=== PATIENT | female | born 1980 | race Caucasian/White ===

== ENCOUNTER 2017-10-03 09:01 | Inpatient (IN) | payer OTHER ==
[~2017-10-03] VITALS: Ht 172.7 cm; Wt 63.5 kg
[2017-10-03 09:06] VITALS: BP 144/82
[2017-10-03] MEDS ORDERED: SYNTHROID112 MC1 PO (09:11)
[2017-10-03 10:02] LABS: HEMATOCRIT 39.1 % (37.0-47.0); HEMOGLOBIN 12.8 gm/dL (12.0-15.0); MCH 29.8 pg (26.0-34.0); MCHC 32.7 g/dL (28.0-37.0); MCV 91.1 fL (80.0-100.0); MPV 10.1 fl. (7.2-11.1); NUCLEATED RBCS 0 /100WBC; PLATELET COUNT* 264 thou/uL (150-400); RBC 4.29 mil/uL (4.20-5.00); RDW-CV 12.9 % (10.5-14.5); WBC 15.3 thou/uL (4.0-11.0)
[2017-10-03 10:07] LABS: URINE BLOOD TRACE (Negative); URINE CLARITY CLEAR; URINE COLOR YELLOW; URINE GLUCOSE-RANDOM TRACE (Negative); URINE LEUKOCYTES-REFLEX NEGATIVE (Negative); URINE NITRITE-REFLEX NEGATIVE (Negative); URINE PROTEIN 1+ (Negative); URINE UROBILINOGEN >= 8.0 E.U./dl (0.2-1.0)
[2017-10-03 10:09] LABS: CALCIUM 9.2 mg/dL (8.5-10.1); CREATININE 0.7 mg/dL (0.6-1.3); POTASSIUM 3.3 mmol/L (3.5-5.1)
[2017-10-03 10:12] LABS: URINE BILIRUBIN 2+ (Negative); URINE KETONES 3+ (Negative)
[2017-10-03 10:13] LABS: ALBUMIN 3.5 g/dL (3.4-5.0); TOTAL BILIRUBIN 0.9 mg/dL (<0.1-1.0); TOTAL PROTEIN 8.2 g/dL (6.4-8.2)
[2017-10-03 10:13] LABS: ICTOTEST (BILI CONFIRMATORY) Negative (Negative)
[2017-10-03 10:15] LABS: BACTERIA-REFLEX None Seen /HPF (None Seen); CASTS None Seen /LPF (None Seen); CRYSTALS None Seen /LPF (None Seen); MUCUS 4-6 Moderate strn/LPF (None Seen); SQUAMOUS >10 Many /LPF (0-3); URINE RBC 0-2 Rare /HPF (0-2); URINE WBC-REFLEX 0-5 Rare /HPF (0-5)
[2017-10-03 10:29] LABS: ABSOLUTE EOSINOPHILS 0.2 thou/uL (0.0-0.7); ABSOLUTE LYMPHOCYTES 1.1 thou/uL (0.8-5.3); ABSOLUTE MONOCYTES 0.5 thou/uL (0.0-1.2); ABSOLUTE NEUTROPHILS 13.6 thou/uL (1.6-8.1); PLATELET ESTIMATE ADEQUATE
[2017-10-03 11:52] VITALS: BP 144/82
[2017-10-03 14:49] VITALS: BP 114/70
[2017-10-03 16:42] VITALS: BP 119/68
[2017-10-04] VITALS: BP 114/74
[2017-10-04 04:01] LABS: ABSOLUTE LYMPHOCYTES 0.7 thou/uL (0.8-5.3); ABSOLUTE NEUTROPHILS 10.6 thou/uL (1.6-8.1); BASOPHILS 0.3 %; EOSINOPHILS 0.1 %; HEMATOCRIT 31.3 % (37.0-47.0); LYMPHOCYTES 5.7 %; MCH 30.4 pg (26.0-34.0); MCHC 33.3 g/dL (28.0-37.0); MCV 91.4 fL (80.0-100.0); MONOCYTES 7.9 %; MPV 10.1 fl. (7.2-11.1); NUCLEATED RBCS 0 /100WBC; PLATELET COUNT* 217 thou/uL (150-400); RBC 3.43 mil/uL (4.20-5.00); WBC 12.4 thou/uL (4.0-11.0)
[2017-10-04 04:07] LABS: HEMOGLOBIN 10.4 gm/dL (12.0-15.0)
[2017-10-04 04:30] LABS: ALBUMIN 2.6 g/dL (3.4-5.0); CALCIUM 7.7 mg/dL (8.5-10.1); CREATININE 0.6 mg/dL (0.6-1.3); POTASSIUM 4.1 mmol/L (3.5-5.1); TOTAL BILIRUBIN 0.6 mg/dL (<0.1-1.0); TOTAL PROTEIN 5.8 g/dL (6.4-8.2)
[2017-10-04 08:03] VITALS: BP 110/73
[2017-10-04 15:48] VITALS: BP 105/67
--- NOTE | 2017-10-04 19:07 | NUR ---
PT VSS THIS SHIFT. PT AMBULATING IN HALLS WITH FAMILY WITH NO COMPLICATIONS. PT TOLERATING NG TUBE AT 61 THIS SHIFT. PT PAIN WELL CONTROLLED WITH IV MEDICATIONS THIS SHIFT, PT CALLS OUT FOR PAIN RELIEF WITH NO PROBLEMS. FAMILY AT BEDSIDE THIS SHIFT.
[2017-10-04 20:00] VITALS: BP 118/69
[2017-10-04 23:55] VITALS: BP 109/70
[2017-10-05 04:03] VITALS: BP 104/69
[2017-10-05 04:35] LABS: ALBUMIN 2.5 g/dL (3.4-5.0); CALCIUM 8.1 mg/dL (8.5-10.1); CREATININE 0.6 mg/dL (0.6-1.3); MAGNESIUM 1.8 mg/dL (1.8-2.4); PHOSPHORUS* 2.4 mg/dL (2.5-4.9); POTASSIUM 3.7 mmol/L (3.5-5.1); TOTAL BILIRUBIN 0.3 mg/dL (<0.1-1.0); TOTAL PROTEIN 6.2 g/dL (6.4-8.2)
[2017-10-05 04:37] LABS: HEMATOCRIT 31.4 % (37.0-47.0); HEMOGLOBIN 10.6 gm/dL (12.0-15.0); MCH 30.9 pg (26.0-34.0); MCHC 33.7 g/dL (28.0-37.0); MCV 91.5 fL (80.0-100.0); MPV 10.1 fl. (7.2-11.1); RBC 3.43 mil/uL (4.20-5.00); RDW-CV 13.3 % (10.5-14.5); WBC 8.1 thou/uL (4.0-11.0)
--- NOTE | 2017-10-05 06:04 | NUR ---
PATIENT HAS REMAINED ALERT AND ORIENTED X 4 THROUGHOUT THE SHIFT AND RESTING QUIETLY ON HOURLY ROUNDS. UP WITH FAMILY HS AND MADE MULTIPLE AMBULATING ROUNDS OF UNIT. SCD'S ON WHILE IN BED. NGT TO LOW INTERMITTANT SUCTION. DECREASING OUTPUT. NO NAUSEA. DRESSINGS TO ABDOMEN CLEAN AND DRY. ISIDORO INTACT. MEDICATED FOR PAIN Q3H TO GOOD EFFECT. USING IS INDEPENDENTLY. VITAL SIGNS STABLE. REMAINS NPO. IVF'S AND ANTIBIOTICS PER ORDERS. SPOKE TO DR. YU AT 0752 REGARDING AM LOVENOX DOSE. NEW ORDERS RECEIVED. CONTINUE TO MONITOR.
[2017-10-05 07:45] VITALS: BP 109/71
--- NOTE | 2017-10-05 10:32 | NUR ---
NURSE CHECKED AND AGREES WITH NURSING STUDENTS CHARTING.
--- NOTE | 2017-10-05 14:00 | NUR ---
PT.ALERT AND ORIENTED. STATED SHE LIVES AT HOME WITH HER AND CHILDREN. SHE IS INDEPENDENT. WORKS OUTSIDE THE HOME. NO HX OF DME OR HOME HEALTH. SHE HAS BEEN AMBULATING IN HALLS. GOAL IS TO RETURN HOME WITH FAMILY.
[2017-10-05 15:30] VITALS: BP 110/77
--- NOTE | 2017-10-05 18:18 | NUR ---
ALERT AND ORIENTED X4. UP AD EDUARDO IN ROOM. IV IS PATENT AND INFUSING. PAIN BEING MANAGED WITH IV PAIN MEDICATION. DENIES NAUSEA. NG TUBE IN PLACE AND CLAMPED. TOLERATING CLEAR LIQUID DIET. AMBULATING IN HALLWAYS THROUGHOUT SHIFT. VSS ON ROOM AIR. HOURLY ROUNDS HAVE BEEN MAINTAINED THROUGHOUT SHIFT. CALL LIGHT IS WITHIN REACH. NURSING WILL CONTINUE TO MONITOR.
[2017-10-05 19:52] VITALS: BP 116/76
[2017-10-05 23:30] VITALS: BP 100/65
[2017-10-06 02:10] VITALS: BP 107/70
[2017-10-06 04:00] VITALS: BP 114/74
[2017-10-06 04:41] LABS: CALCIUM 7.9 mg/dL (8.5-10.1); CREATININE 0.5 mg/dL (0.6-1.3); MAGNESIUM 2.1 mg/dL (1.8-2.4); PHOSPHORUS* 3.2 mg/dL (2.5-4.9); POTASSIUM 3.9 mmol/L (3.5-5.1)
[2017-10-06 04:42] LABS: ABSOLUTE EOSINOPHILS 0.1 thou/uL (0.0-0.7); ABSOLUTE MONOCYTES 0.7 thou/uL (0.0-1.2); ABSOLUTE NEUTROPHILS 4.5 thou/uL (1.6-8.1); BASOPHILS 0.4 %; HEMATOCRIT 29.1 % (37.0-47.0); HEMOGLOBIN 9.7 gm/dL (12.0-15.0); MCH 30.5 pg (26.0-34.0); MCHC 33.4 g/dL (28.0-37.0); MCV 91.5 fL (80.0-100.0); MONOCYTES 11.3 %; MPV 9.5 fl. (7.2-11.1); NUCLEATED RBCS 0 /100WBC; PLATELET COUNT* 236 thou/uL (150-400); POLYS 70.3 %; RBC 3.18 mil/uL (4.20-5.00); RDW-CV 13.2 % (10.5-14.5); WBC 6.4 thou/uL (4.0-11.0)
--- NOTE | 2017-10-06 05:38 | NUR ---
PATIENT HAS REMAINED ALERT AND ORIENTED X 4 THROUGHOUT THE SHIFT AND RESTING QUIETLY. UP IN ROOM WITH CGA WITH . HAS BEEN AMBULATING IN THE HALLS. NGT OUT AT SHIFT CHANGE. SIPPING CLEAR LIQUIDS. HAS DENIED NAUSEA AND FEELS SHE MAY HAVE PASSED A LITTLE GAS. LAP SITES CLEAN AND DRY. SMALL AMOUNT SEEPAGE FROM DRAIN SITE. THIS DRESSING REPLACED EARLY AM. DEBI-DRAIN SITE WITHOUT REDDNESS OR EDEMA. MEDICATED FOR PAIN Q3H TO GOOD EFFECT. VITAL SIGNS STABLE. CONTINUE TO MONITOR.
[2017-10-06 09:07] VITALS: BP 112/70
--- NOTE | 2017-10-06 16:37 | NUR ---
ASSUMED CARE OF PATIENT AFTER MORNING REPORT. ALERT AND ORIENTED X4. ASSESSMENT COMPLETED AND CHARTED. VSS ON ROOM AIR. FLUIDS AND ANTIBIOTICS INFUSED ORDERED. PATIENTS PAIN MANAGED WITH IV PAIN MEDICATION. NO COMPLAINTS OF NAUSEA OR SOA THIS SHIFT. PATIENT PASSING GAS BUT HAS NOT HAD A BOWEL MOVEMENT YET, STOOL SOFTENER AND MIRALAX GIVEN ORDERED. PATIENT AMBULATING AROUND THE UNIT THROUGHOUT THE SHIFT. PATIENT TOOK A SHOWER THIS AFTERNOON, ISIDORO DRESSING COVERED WITH TEGADERM TO KEEP IT DRY. RESTING COMFORTABLY IN BED AT THIS TIME. HOURLY ROUNDS MAINTAINED, CALL LIGHT IN REACH, NURSING WILL CONTINUE TO MONITOR.
[2017-10-06 20:00] VITALS: BP 133/86
[2017-10-07] VITALS: BP 112/66
[2017-10-07 03:41] VITALS: BP 121/75
[2017-10-07 04:08] LABS: ABSOLUTE EOSINOPHILS 0.1 thou/uL (0.0-0.7); ABSOLUTE LYMPHOCYTES 1.1 thou/uL (0.8-5.3); ABSOLUTE MONOCYTES 0.9 thou/uL (0.0-1.2); ABSOLUTE NEUTROPHILS 4.1 thou/uL (1.6-8.1); BASOPHILS 0.8 %; EOSINOPHILS 2.3 %; HEMATOCRIT 29.8 % (37.0-47.0); MCH 30.7 pg (26.0-34.0); MCHC 33.4 g/dL (28.0-37.0); MCV 91.7 fL (80.0-100.0); MONOCYTES 14.2 %; MPV 9.3 fl. (7.2-11.1); NUCLEATED RBCS 0 /100WBC; PLATELET COUNT* 287 thou/uL (150-400); POLYS 64.7 %; RBC 3.25 mil/uL (4.20-5.00); RDW-CV 13.2 % (10.5-14.5); WBC 6.3 thou/uL (4.0-11.0)
[2017-10-07 04:28] LABS: CALCIUM 8.5 mg/dL (8.5-10.1); CREATININE 0.5 mg/dL (0.6-1.3); MAGNESIUM 1.9 mg/dL (1.8-2.4); PHOSPHORUS* 4.7 mg/dL (2.5-4.9); POTASSIUM 4.7 mmol/L (3.5-5.1)
--- NOTE | 2017-10-07 05:01 | NUR ---
ASSUME PT CARE AT 19:15. PT IS ALERT AWAKE ORIENTED X 4 . SHE COMPLAINS OF PAIN LEVEL OF 7 IN HER ABDOMEN. VITAL SIGNS TAKEN. RESULTS ARE WITHIN NORMAL LIMIT. IS AT BEDSIDE AND PT WALKED AROUND THE HALLWAY BEFORE BEDTIME. MORPHINE WAS ADMISTERED Q2 HORUS FOUR PAIN NEEDED. ZOFRAN WAS ALSO GIVEN FOR NAUSEA. IV ANTIBIOTICAS GIVEN SCHEDULED. AND IV S 1/2 NS 20 MEQ RUNNING AT 125CC/HR. IV LINE IS PATENT. VITAL SIGNS MEASURED Q4 HOURS PT IS POST OP. WILL CONTINUWE TO MONITOR.
[2017-10-07 07:45] VITALS: BP 120/80
[2017-10-07 15:40] VITALS: BP 133/86
--- NOTE | 2017-10-07 17:52 | NUR ---
ALERT AND ORIENTED X4. UP AD EDUARDO IN ROOM. IV IS PATENT AND INFUSING. TOLERATING FULL LIQUID DIET. PAIN BEING MANAGED WITH IV MEDICATION. NAUSEA BEING MANAGED WITH IV NAUSEA MEDICATION. AMBULATING IN HALLWAYS THROUGHOUT SHIFT. VSS ON ROOM AIR. HOURLY ROUNDS HAVE BEEN MAINTAINED THROUGHOUT SHIFT. CALL LIGHT IS WITHIN REACH. NURSING WILL CONTINUE TO MONITOR.
--- NOTE | 2017-10-07 18:07 | NUR ---
PT A&OX4. VITAL SIGNS TAKEN AND CHARTED. PT REMAINS ON ROOM AIR AND AMBULATES THE HALLS OFTEN. FLUIDS INFUSING PER DR ORDERS. REPORTED PAIN AND NAUSEA. PT REPORTED RELIEF WITH MEDS. PT TOLERATED FULL LIQUID DIET WELL. CALL LIGHT WITHIN REACH. WILL CONTINUE TO MONITOR.
[2017-10-07 20:40] VITALS: BP 123/75
[2017-10-08 03:58] LABS: HEMATOCRIT 28.9 % (37.0-47.0); HEMOGLOBIN 9.9 gm/dL (12.0-15.0); MCH 31.1 pg (26.0-34.0); MCHC 34.4 g/dL (28.0-37.0); MCV 90.6 fL (80.0-100.0); MPV 8.9 fl. (7.2-11.1); RBC 3.19 mil/uL (4.20-5.00); RDW-CV 12.8 % (10.5-14.5); WBC 7.2 thou/uL (4.0-11.0)
[2017-10-08 04:13] LABS: CALCIUM 8.4 mg/dL (8.5-10.1); CREATININE 0.6 mg/dL (0.6-1.3); MAGNESIUM 1.9 mg/dL (1.8-2.4); PHOSPHORUS* 4.6 mg/dL (2.5-4.9); POTASSIUM 4.5 mmol/L (3.5-5.1)
--- NOTE | 2017-10-08 05:24 | NUR ---
PATIENT ALERT AND ORIENTED X 4. VITALS STABLE. RA. PAIN CONTROLLED WITH PO MEDICATION. ZOFRAN GIVEN X 2. LAP SITES X 2 C/D/I. ISIDORO DRAIN IN PLACE. UP INDEPENDENTLY. FLUIDS INFUSING PER ORDER. PASSING FLATUS, NO BOWEL MOVEMENT DURING MY SHIFT. HOURLY ROUNDS. NURSING WILL CONTINUE TO MONITOR.
[2017-10-08 08:33] VITALS: BP 114/78
[2017-10-08 15:44] VITALS: BP 121/73
[2017-10-09 00:26] VITALS: BP 114/77
[2017-10-09 04:05] LABS: HEMATOCRIT 32.1 % (37.0-47.0); HEMOGLOBIN 10.5 gm/dL (12.0-15.0); MCH 29.8 pg (26.0-34.0); MCHC 32.7 g/dL (28.0-37.0); MCV 91.1 fL (80.0-100.0); MPV 9.2 fl. (7.2-11.1); RBC 3.53 mil/uL (4.20-5.00); RDW-CV 13.1 % (10.5-14.5); WBC 7.8 thou/uL (4.0-11.0)
[2017-10-09 04:29] LABS: CALCIUM 8.7 mg/dL (8.5-10.1); CREATININE 0.7 mg/dL (0.6-1.3); POTASSIUM 4.3 mmol/L (3.5-5.1)
--- NOTE | 2017-10-09 05:08 | NUR ---
PT SLEPT FAIRLY WELL OVERNIGHT. RECEIVING IBUPROFEN FOR MILD PAIN WITH GOOD RELIEF. DENIES NEED FOR NAUSEA MED BUT STATES FLAGYL MAKES HER A LITTLE NAUSEATED SHE BELIEVES. DRSG TO LOW ABD WITH SMALL AMOUNT SEROUS DRAINAGE PRESENT, LAP SITES CLEAN AND DRY. LFA SL, ABX GIVEN ORDERED. TOLERATING REGULAR DINNER AND SNACKS WITHOUT EMESIS. PASSING FLATUS BUT NO BM YET. AM LABS DRAWN. AT BEDSIDE OVERNIGHT. ABLE TO USE CALL LITE AND MAKE NEEDS KNOWN. UP AD EDUARDO TO BR TO VOID.
--- NOTE | 2017-10-09 06:51 | NUR ---
RESIDENT HERE TO SEE PT, WILL CONTACT DR TO SEE IF PT IS ABLE TO TRANSITION TO PO MEDS IN ANTICIPATION OF DISCHARGE. IV FLAGYL NOT GIVEN AT THIS TIME PER PT REQUEST FOR ORAL ABX.
[2017-10-09 08:00] VITALS: BP 116/62
[2017-10-09] MEDS ORDERED: AUGMENTIN 500-1 EACH PO (13:50)
[2017-10-09 13:53] VITALS: BP 116/62
--- NOTE | 2017-10-09 14:13 | NUR ---
ASSUMED CARE THIS AM, A/O, NO DISTRESS NOTED, WESLEY REGLAR FOODS WITHOUT DIFFICULTY, DID HAVE SMALL NORMAL BM THIS MORNING. WESLEY IV AND ORAL ABT WITHOUT INCIDENT, DISCOMFORT MANAGED WELL WITH MEDICATION. DISCHARGE ORDERS RECEIVED, IV ACCESS REMOVED WITHOUT INCIDENT, DISCHARGE INSTRUCTIONS, FOLLOW UP APPTS, PRESCRIPTION FOR AUGMENTIN DISCUSSED WITH AND GIVEN TO, PATIENT AND DENY QUESTIONS AT THIS TIME. PERSONAL EFFECTS GATHERED, ACCOUNTED FOR, IN COMPANY OF PATIENT, TRANSPORTED TO MAIN ENTRANCE IN STABLE CONDITION.
--- NOTE | 2017-10-12 16:07 | OP ---
[address] [address] OPERATIVE REPORT Name: DANICA ARENAS Room: [address] IN .R#: [id number] Admission: 10/03/17 Attend Phys: Jose Avendano DO Discharge: 10/09/17 Date of : 80 Report #: [id number] THIS REPORT FOR: //name// CC: Jose Avendano [facility] physician/PCP DATE OF SERVICE: 10/03/2017 PREOPERATIVE DIAGNOSIS: Acute appendicitis. POSTOPERATIVE DIAGNOSIS: Acute ruptured appendicitis with intraperitoneal abscess and peritonitis. PROCEDURE: Laparoscopic appendectomy and repair of small gastric injury. SURGEON: Jose Avendano DO. ENDLESS BED DRUM SANDER: Camilla Ho DO, PGY4, resident. ANESTHESIA: General endotracheal. ESTIMATED BLOOD LOSS: Less than 20 mL. SPECIMEN REMOVED: Appendix. INDICATIONS: A 15-Thai Richardson-Escobar drain. COMPLICATIONS: Was an injury to the stomach while entering the peritoneal cavity. DESCRIPTION OF PROCEDURE: After obtaining proper consents and discussing risks and complications with the patient, she was taken to the operating room, laid in the supine position and administered general anesthesia. She was then prepped and draped in the usual fashion. The placement of the endotracheal tube was somewhat difficult because the patient had a small chin and it did take a little bit longer in order to get the patient intubated. After the patient was prepped and draped in the usual fashion, we performed a timeout. We then made a small supraumbilical skin incision. This was carried down through the skin into the subcutaneous tissue using electrocautery for hemostasis. The patient is quite thin and while getting into the subcutaneous tissue, we noted that there was some air coming from the wound. This was quite a concern and we did then cautiously open the fascia and it appeared that the fascia was already opened in one area in the stomach, which was quite distended, was directly underneath this. I was unable to visualize any area of injury at this time, but again I was quite concerned because there was a small amount of air that came out of the wound when we opened it. I then extended the fascial [place] [address] OPERATIVE REPORT Name: DANICA ARENAS Room: [address] IN [facility].#: [id number] Admission: 10/03/17 Attend Phys: Jose Avendano DO Discharge: 10/09/17 Date of : 80 Report #: [id number] was bluntly opened using a hemostat. I then placed 2-0 Vicryl sutures in a [id number] fashion to secure the Jocelyn trocar. Once the Jocelyn trocar was inserted, we then performed visual inspection of the anterior abdominal organs and again the stomach was noted to be quite distended as was some of the small bowel. We immediately identified some bleeding up along the greater curvature of the stomach, but I was unable to visualize any hole at this point. I then placed a 5 mm trocar in the suprapubic position. I was then able to grasp the stomach because the patient was quite small and was able to bring this down into better view and then we did identify approximately a 1 cm injury to the serosal surface of the stomach. There was nothing leaking from this at this point and it appeared to be sealed. I immediately asked anesthesia to place a nasogastric tube. I then placed a 12 mm trocar in the left lower quadrant and we used an EndoStitch to place two sutures in a Lembert fashion over top of this area of injury. We again saw no evidence of anything leaking and then at this time, we ran the small bowel to assure there were no other areas of injury. We also inspected the colon, which appeared normal except for the right lower quadrant. There did appear to be some adhesions of the sigmoid colon and terminal ileum to the area of the cecum and there was a moderate amount of inflammation in this area consistent with appendicitis. We finally did identify the appendix, which was in a retrocecal position also deep in the pelvis and it was surrounded by a sigmoid colon as well as terminal ileum. I was able to free the appendix and identify that the appendix was ruptured in the proximal one-third of the appendix. I was able to visualize a good appendiceal base. We then used the Harmonic scalpel to sequentially clamp and divide the mesoappendix until the only thing remaining was the base of the appendix. A 45 mm purple load was then fired across the base of the appendix. The appendix was then placed into an Endopouch. The area was then checked for hemostasis and assured no leak. We copiously irrigated this area. We also identified a small abscess in this area, which was broken apart and suctioned immediately. We then copiously irrigated down in the pelvis as well. We again ran the small bowel to assure there were no intermesenteric abscesses and we found none. We then went back to look at the stomach where I placed the 2 sutures. We did ask anesthesia to blow up the stomach using a Jazmín syringe through the nasogastric tube and we bubble tested this area to assure there was no leaking. Finding none, we then placed a 15-Thai Richardson-Escobar drain through the suprapubic trocar site. This was placed down into the pelvis and up along the right pericolic gutter and then sutured in place using 2-0 nylon suture. The remaining trocars were then removed under direct vision. The insufflation was stopped, all air was released. The umbilical fascia was closed using 6 interrupted 0 Vicryl sutures in a fldjnb-lz-ybaax fashion. The skin incisions were all injected with 0.5% Marcaine without epinephrine and then closed using 4-[place] [address] OPERATIVE REPORT Name: DANICA ARENAS Room: [address]#: [id number] Admission: 10/03/17 Attend Phys: Jose Avendano DO Discharge: 10/09/17 Date of : 80 Report #: [id number] stitches. Mastisol, Steri-Strips, sterile OpSite and pressure dressings were placed. The patient tolerated the procedure well . <ELECTRONICALLY SIGNED> By: Jose Avendano DO 10/12/17 1607 [id number] [id number] Avendano DO /nt
--- NOTE | 2017-10-28 17:11 | PATH ---
[address] [address] PATHOLOGY RPT PROCEDURE Name: DANICA ARENAS Room: [address] IN .R.#: [id number] Admission: 10/03/17 Date of : 80 Discharge: 10/09/17 Report #: [id number] Path Case #: [id number] [facility] Accession Number: [id number] . 01 Material submitted: . APPENDIX . 01 Clinical history: . Acute appendicitis . 02 Diagnosis: Appendix: - Acute gangrenous appendicitis, periappendicitis, and serositis with evidence of perforation. (LEVON:mgrosa; 10/05/17) QRQ/10/05/2017 . 02 Electronically signed: . Juan Pablo Olmedo MD, Pathologist NPI- [id number] . 01 Gross description: . The specimen is received in formalin, labeled "gwen Sosa". Received is a vermiform appendix measuring 7.1 cm in length by up to 1.3 cm in diameter with a moderate amount of attached mesoappendix. The serosal surface is dusky pink-pride in appearance with a perforation present measuring 0.2 cm located 1.0 cm from the closest margin. The surrounding serosal surface is inked black. Sectioning reveals a patent to dilated lumen filled with fecal material. The specimen is submitted representatively as follows: . A1 proximal margin, bisected tip, and section through perforation A2 additional cross-sections of appendix. (CAA; 10/04/2017) QAC/QAC . 02 Pathologist provided ICD-10: K35.80 . 02 CPT . 332577 Performed at: [address] [id number] MD Christiano Dean MD Phone: [phone] Performed at: [address] [id number] [place] [address] PATHOLOGY RPT PROCEDURE Name: DANICA ARENAS Room: [address] IN M.R.#: [id number] Admission: 10/03/17 Date of : 80 Discharge: 10/09/17 Report #: [id number] Path Case #: [id number] MD Juan Pablo Olmedo MD Phone: [phone]
== END 2017-10-09 14:20 | disposition home or self-care (01) | DRG 339 ==
LOC: M.ERS 09:01 → M.ORTHSURG 13:55 → M.TBA-ER 13:55 → M.ORTHSURG 14:13
PROVIDERS: Family Medicine; ADMIT Surgery
PROC: 0DTJ4ZZ Resection of Appendix, Percutaneous Endoscopic Approach (ICD-10-PCS; principal; 2017-10-03)
DX: K35.3 Acute appendicitis with localized peritonitis (principal); K56.7 Ileus, unspecified; R65.10 Systemic inflammatory response syndrome (SIRS) of non-infectious origin without acute organ dysfunction; E03.9 Hypothyroidism, unspecified; Z83.49 Family history of other endocrine, nutritional and metabolic diseases; Z79.899 Other long term (current) drug therapy